=== PATIENT | male | born 1985 | race Caucasian/White ===

== ENCOUNTER 2025-05-28 09:59 | Outpatient (OUT) | payer OTHER, SELFPAY ==
--- OUTSIDE RECORDS SUMMARY | 2025-05-28 10:02 | XMS_ITS | Clinical Summary ---
Author Organization [facility] Healthcare Address [address] [place] [address] Care Team Providers Care Human Capital Analyst Name Role Phone Carlie Nunn MD Primary Care Provider [phone] Allergies No known active allergies Medications MedicationSigDispense QuantityRefillsLast FilledStart DateEnd DateStatus losartan (Cozaar) 50 MG tablet Take 50 mg by mouth DailyActive SUMAtriptan (Imitrex) 50 MG tablet Indications:Chronic migraine without aura without status migrainosus, not intractableTake 1 tablet by mouth as needed at the onset of migraine. May repeat dose (1 tablet) once after 2 hours if migraine persists. Do not exceed 2 doses in 24 hours. 9 tablet ctive fremanezumab (Ajovy) 225 MG/1.5ML auto-injector Indications:Chronic migraine without aura without status migrainosus, not intractableInject 1 pen (225 mg) under the skin every 30 (thirty) days 1.68 mL ctive Family History Medical HistoryRelationNameCommentsSkin cancerMaternal GrandfatherHypertension Paternal GrandmotherRelationNameStatusCommentsMaternal GrandfatherPaternal Grandmother Social History Tobacco UseTypesPacks/DayYears UsedDateSmoking Tobacco: NeverSmokeless Tobacco: Never Tobacco Cessation:Counseling Given: Not Answered Alcohol UseStandard Drinks/WeekCommentsNever0 (1 standard drink = 0.6 oz pure alcohol)Sex and Gender InformationValueDate RecordedSex Assigned at BirthNot on fileLegal NcuByxx5001/31/2024 10:19 AM EDTGender IdentityNot on fileSexual OrientationNot on file Last Filed Vital Signs Vital SignReadingTime TakenCommentsBlood Cxkcsbae405/6804/09/2024 8:03 AM EST Pmmxr737504/09/2024 8:03 AM ESTTemperature--Respiratory Rate--Oxygen Zucfnkkxpn17% 04/09/2024 8:03 AM ESTInhaled Oxygen Concentration--Glvnlf52.8 kg (209 lb) 04/09/2024 8:03 AM WPFFjhqmh575.6 cm (5' 6 )04/09/2024 8:03 AM ESTBody Mass Index33.7304/09/2024 8:03 AM EST Plan of Treatment Not on file Insurance Care Teams Team MemberRelationshipSpecialtyStart Date Carlie Bailey MD PCP - GeneralFamily Medicine01/31/24
--- OUTSIDE RECORDS SUMMARY | 2025-05-28 10:02 | XMS_ITS | Clinical Summary ---
Author Organization [facility] Address [address] [place] [address], [address] [place] [address] Care Team Providers Care Drapery Worker Name Role Phone Jacky Lundy MD Primary Care Provider Social History Tobacco UseTypesPacks/DayYears UsedDateSmoking Tobacco: NeverSmokeless Tobacco: NeverAlcohol UseStandard Drinks/WeekCommentsNever0 (1 standard drink = 0.6 oz pure alcohol)Sex and Gender InformationValueDate RecordedSex Assigned at Not on fileLegal IvcLome0107/29/2021 8:56 PM ESTGender IdentityNot on fileSexual OrientationNot on file Last Filed Vital Signs Vital SignReadingTime TakenCommentsBlood Eovkyugp491/8005 11:17 AM EDT Jxwhe301110/22/2020 11:17 AM EDTTemperature--Respiratory Rate--Oxygen Saturation-- Inhaled Oxygen Concentration--Viyjgx74.6 kg (180 lb)10/22/2020 10:41 AM EDT Sumaba341.6 cm (5' 6 )10/22/2020 10:41 AM EDTBody Mass Index29.05010/22/2020 10:41 AM EDT Plan of Treatment Health MaintenanceDue DateLast DoneCommentsDepression Eeoldj1202/01/1996Varicella vaccine (1 of 2 - 13+ 2-dose series)01/31/1997HIV qxryje1301/31/1999Hepatitis C wnbwsl3601/31/2002DTaP/Tdap/Td vaccine (1 - Tdap)01/31/2003Hepatitis B vaccine (1 of 3 - 19+ 3-dose series)01/31/20032751Bdifuw00/05/2024Flu vaccine (#1)12/27/2024 COVID-19 Vaccine ( season)2025HPV vaccine (No Doses Required) CompletedHepatitis A vaccineAged OutNo longer eligible based on patient's age to complete this topicHib vaccineAged OutNo longer eligible based on patient's age to complete this topicMeningococcal (ACWY) vaccineAged OutNo longer eligible based on patient's age to complete this topicMeningococcal B vaccineAged OutNo longer eligible based on patient's age to complete this topicPneumococcal 0-49 years VaccineAged OutNo longer eligible based on patient's age to complete this topicPolio vaccineAged OutNo longer eligible based on patient's age to complete this topic Care Teams Team MemberRelationshipSpecialtyStart DateEnd Date Jacky Lundy MD [address] [place] [address] PCP - General05/31/22
--- NOTE | 2025-05-28 10:59 | P.CN_ITS ---
Consult Note: HPI Data of Consult Patient: new to practice Consult date: 05/28/25 Requesting Physician: Leonela Card NP Primary Care Provider: Non-Staff Physician, MD Consult Narrative Reason for consult: neck and low back pain Narrative: Louis Hernández a pleasant 40 year old male with longstanding neck and low back pain > 5 years presents for evaluation of chronic pain. Pt notes a prior hx of cervical/lumbar RFAs and lumbar ESIs with benefit, no recent injections as he has not established with pain management since retiring from the [employer]. Pt noting pain 5-6/10 in neck and 4/10 in low back, pain dull and achy. pain increases with standing, walking, shoveling, activity, and by evening. notes improvement in pain with lying, heat, and ice. pt notes prior lumbar/cervical xray and cervical MRI with the [employer], no available records at this time. denies numbness tingling or weakness, as well as loss of bowel/bladder. utilizing motrin, amitriptyline 100mg daily for headaches. follows with neurology q3-4 months for headaches. failed > 6 weeks of PT and HEP in the last 12 months. cc:: CC: Leonela Card NP Review of Systems ROS Musculoskeletal Reports: back pain, neck pain and joint pain; Denies: extremity pain Meds Home Medications and Allergies Home Medications ?Medication ?Instructions ?Recorded ?Confirmed ?Type diclofenac sodium 75 mg 75 mg PO BID PRN pain #60 ta bs 05/28/25 Rx tablet,delayed release Exam Constitutional Documenting provider has reviewed patient's vital signs: yes Common normals: no apparent distress, oriented x3 and alert General appearance: cooperative HENMT Common normals: normocephalic, hearing grossly normal bilaterally and moist oral mucous membranes Head and scalp: normocephalic Eye Common normals: PERRL Pupil: PERRL Neck & C-Spine Cervical spine: cervical ROM normal, pain with cervical ROM and cervical spine tenderness; no paracervical muscle spasm and no trapezius muscle tenderness Other: positive facet loading, tenderness noted C3-5 increased discogenic pain with forward flexion to C5,6 intermittent left C6,7,T1 radiculopathy strength 5/5 in BUE, sensation intact BUE on exam Chest Common normals: inspection of chest normal Respiratory Common normals: normal respiratory effort, no retractions and no use of accessory muscles Back & Pelvis Lumbar spine/lower back: lumbar ROM normal; no pain with ROM and no lumbar spinal tenderness Sacroiliac joints: SI joints normal Other: decreased sensation right L4,5,S1 strength 5/5 in BLE Neuro Common normals: oriented x3 Sensorium/orientation: alert Psych Common normals: mental status grossly normal, thought process normal, cooperative, affect normal, speech normal and activity/motor behavior normal Speech: normal speech Thought process: normal thought process Results Additional Findings Additional findings: If on a controlled substance or opioids, I have checked an [place]AR[place] report on this patient and there are no aberrancies noted in the prescribing history.??If on a controlled substance or opioid a drug screen was completed and reviewed within the last year, and if there has not been a drug screen completed we ordered one today to monitor higher risk, state monitored pain medication use. As part of providing excellent, safe, comprehensive care, the following was completed at our patient's visit: 1. A medication reconciliation and review to ensure accurate knowledge of current/active medications, including asking our patients to inform us about any lrue-loi-unrengk medications or herbal remedies/nutritional supplements/alternative remedies. 2. A review to specifically ensure our patients have had annual screening for screening for depression, screening for tobacco use, and screening for unhealthy alcohol use. For concerning screenings had a discussion with the patient, provided patient education, and recommended follow-up with primary care provider when appropriate. If patient noted with a risk of falling, they received education on strength, gait, and balance training to prevent future risk of falling. Portions of this note may have been carried over from the previous visit and updated as appropriate. Please note this office utilizes paper charting in addition to the electronic medical record. A list of current medications, vitals, and PMH is available there as the clinical staff outside of myself do not have access to [facility] charting during the clinic day operations. As part of providing quality comprehensive care the current medications, vitals, and PMH were reviewed in the paper chart. Assessment and Plan Assessment and Plan (1) Cervical spondylosis: (2) Lumbar spondylosis: (3) Lumbar radiculopathy: Plan The patient has had over 3 months of moderate to severe low back and neck pain with functional impairment and inadequate response to conservative care including NSAIDS (unless there are contraindication such as concurrent blood thinners), multiple oral or topical pain medications, and home exercise program/physical therapy.? Patient has completed >6 weeks of guided home exercise program and/or formal physical therapy program without relief of their symptoms.? The Oswestry Disability Index was completed, and the patient scored a 28%.? new pt evaluation for chronic neck and low back pain, no available imaging or prior injection records at this time. [facility] 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 he notes prior injections were helpful. dc ibuprofen, start diclofenac 75mg bid prn pain take with food. caution long term care pharmacist nsaid use with htn and GERD, risks vs benefits reviewed. will need updated cervical/lumbar mri without contrast if he has not had in the last 12-24 months. f/u to review imaging and plan of care
== END 2025-05-28 10:00 | disposition home or self-care (01) ==
PROVIDERS: Visit Provider Nurse Practitioner
DX: M47.812 Spondylosis without myelopathy or radiculopathy, cervical region (principal); M47.816 Spondylosis without myelopathy or radiculopathy, lumbar region; M54.16 Radiculopathy, lumbar region
CPT/HCPCS: G0463